=== PATIENT | female | born 1930 | race Asian ===

== ENCOUNTER → 2016-12-10 | Outpatient (CLI) | payer OTHER, MEDICAID ==
[~2016-12-10] MED LIST: ACTOS PO; ALENDRONATE PO; AMLO2.5T PO; ASPI81TA2 PO; DIOVAN PO; FENO160T11 PO; LEVO500 PO; OS500 PO; PRAVASTATIN PO; VITAD400 PO
== END | disposition home or self-care (01) ==
LOC: RADPV 10:27
PROVIDERS: ATTEND Internal Medicine
DX: J69.0 Pneumonitis due to inhalation of food and vomit (principal); J98.11 Atelectasis; I70.0 Atherosclerosis of aorta; J90 Pleural effusion, not elsewhere classified
CPT/HCPCS: 71020